=== PATIENT | female | born 1955 | race Caucasian/White ===

== ENCOUNTER → 2016-06-17 | Outpatient (CLI) | payer BC ==
[~2016-06-17] MED LIST: ASPEC325 PO; BNC20 PO; CHOL4POW6 PO; LRT5 PO; METR-163 PO; MULT-506 PO
--- NOTE | 2016-06-17 15:07 | MAMMOGRAPHY REPORT ---
BILATERAL DIGITAL SCREENING MAMMOGRAM TOMOSYNTHESIS WITH CAD: 06/17/2016 CLINICAL HISTORY: Routine screening. Patient has no complaints. TECHNIQUE: Breast tomosynthesis in addition to standard 2D mammography was performed. Current study was also evaluated with a Computer Aided Detection (CAD) system. COMPARISON: Comparison is made to exams dated: 06/12/2015 mammogram, 05/10/2014 mammogram, 03/20/2013 m ammogram, 03/17/2012 mammogram, 03/16/2011 mammogram, and 03/05/2010 mammogram - [facility] enter. BREAST COMPOSITION: The tissue of both breasts is almost entirely fatty. FINDINGS: No suspicious masses, calcifications, or areas of architectural distortion are noted in e ither breast. There has been no significant interval change compared to prior exams. IMPRESSION: ACR BI-RADS CATEGORY 1: NEGATIVE There is no mammographic evidence of malignancy. A 1 year screening mammogram is recommended. The p atient will receive written notification of the results. Approximately 10% of breast cancers are not detected with mammography. A negative mammographic repor t should not delay biopsy if a clinically suggestive mass is present. Nadia Vazquez M.D. /:06/17/2016 13:25:55 [employer] Sales Engineer: Kelsey DARLING(Sheri)(M), [facility] letter sent: Normal 1/2 BI-RADS Code: ACR BI-RADS Category 1: Negative
== END | disposition home or self-care (01) ==
LOC: C.MAMM 12:04
PROVIDERS: ATTEND Family Medicine
DX: Z12.31 Encounter for screening mammogram for malignant neoplasm of breast (principal)

== ENCOUNTER → 2016-06-23 | Outpatient (CLI) | payer BC ==
--- NOTE | 2016-06-23 14:15 | DIAGNOSTIC IMAGING REPORT ---
RIGHT SECOND TOE RADIOGRAPHS CLINICAL HISTORY: Crush injury of right second toe. COMPARISON: None FINDINGS: No acute fracture of the right second toe is identified. There is moderate arthritis of the distal interphalangeal joint. Soft tissue swelling of the right second toe is present. IMPRESSION: 1. No acute fracture or dislocation of the right second toe. 2. Soft tissue swelling of the right second toe. 3. 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 Electronically signed by: Donnell Foley M.D. 06/23/2016 2:13 PM Dictated Date/Time: 06/23/2016 2:11 PM
== END | disposition home or self-care (01) ==
LOC: C.RADBC 13:21
PROVIDERS: ATTEND Family Medicine
DX: S97.121A Crushing injury of right lesser toe(s), initial encounter (principal); X58.XXXA Exposure to other specified factors, initial encounter

== ENCOUNTER → 2017-07-25 | Outpatient (CLI) | payer OTHER ==
--- NOTE | 2017-07-26 15:05 | MAMMOGRAPHY REPORT ---
BILATERAL DIGITAL SCREENING MAMMOGRAM TOMOSYNTHESIS WITH CAD: 07/25/2017 CLINICAL HISTORY: Routine screening. Patient has no complaints. TECHNIQUE: Breast tomosynthesis in addition to standard 2D mammography was performed. Current study was also evaluated with a Computer Aided Detection (CAD) system. COMPARISON: Comparison is made to exams dated: 06/17/2016 mammogram, 06/12/2015 mammogram, 05/10/2014 ma mmogram, 03/20/2013 mammogram, 03/17/2012 mammogram, and 03/16/2011 mammogram - [facility] BREAST COMPOSITION: The tissue of both breasts is almost entirely fatty. FINDINGS: There is stable focal asymmetry in the lower inner left breast, and stable subcentimeter no dular asymmetry in the lower inner anterior left breast. A few benign rim calcifications bilaterally . No suspicious mass, architectural distortion or cluster of microcalcifications is seen. IMPRESSION: ACR BI-RADS CATEGORY 1: NEGATIVE There is no mammographic evidence of malignancy. A 1 year screening mammogram is recommended. The pa tient will receive written notification of the results. Approximately 10% of breast cancers are not detected with mammography. A negative mammographic report should not delay biopsy if a clinically suggestive mass is present. Alana Melgar M.D. ay/:07/25/2017 16:02:50 Head Irrigator: Merary DARLING(Sheri)(Quyen)([place]), [facility] letter sent: Normal 1/2 BI-RADS Code: ACR BI-RADS Category 1: Negative
== END | disposition home or self-care (01) ==
LOC: C.MAMM 15:30
PROVIDERS: ATTEND Family Medicine
DX: Z12.31 Encounter for screening mammogram for malignant neoplasm of breast (principal)